=== PATIENT | female | born 1980 | race Caucasian/White ===

== ENCOUNTER 2019-07-13 16:05 | Emergency (ER) | payer MEDICAID ==
[~2019-07-13] VITALS: Ht 151.1 cm; Wt 87.1 kg
[2019-07-13 16:23] VITALS: BP 125/85
--- NOTE | 2019-07-13 18:41 | NUR ---
PAGE, SENT BACK TO LOBBY
--- NOTE | 2019-07-13 20:21 | NUR ---
PT CALLED BACK TO REASSESS PT CONDITION. PT STILL HAS C/O COUGH AND SORE THROAT. PT HYPERTENSIVE, BP 158/84, ASYMPTOMATIC.
--- NOTE | 2019-07-13 20:28 | NUR ---
PT TAKEN TO BED #7
--- NOTE | 2019-07-13 20:28 | NUR ---
PT AMBULATED TO ER BED 07
--- NOTE | 2019-07-13 20:42 | NUR ---
38 Y/O F C/O COUGH X 1 MONTH. PT STATES SHE HAS TAKEN OVER THE COUNTER MEDICAITON FOR THE COUGH, HAS NOT HELPED. PT LUNG SOUNDS COURSE THROUGHOUT, OXYGEN LEVEL 98% ROOM AIR, PT POSITIONED HIGH FOWLERS.PT DENIES N/V/D. PT PUT IN GOWN, BED LOWERED, SIDE RAIL X [address] FAMILY MEMBER AT BEDSIDE. SHRUTHI
--- NOTE | 2019-07-13 21:20 | NUR ---
DR AVELAR AT BEDSIDE EXAMINING PATIENT.
--- NOTE | 2019-07-13 21:32 | NUR ---
REPORT RECIVED FROM MARISSA JACOB.
--- NOTE | 2019-07-13 21:35 | NUR ---
REPORT GIVEN TO CECIL GALARZA FOR CHANGE OF SHIFT.
--- NOTE | 2019-07-13 21:35 | NUR ---
PT RESTING IN BED. FAMILY AT BEDSIDE. RESPIRATIONS ARE EVEN AND UNLABORED. DRY COUGH NOTED. PT SKIN IS EVEN AND UNLABORED. PT REMAINS ON MONTIOR.
[2019-07-13] MEDS ORDERED: ALBUTEROL 0.083% 2.5 MG/3 ML NEBU INH ONE (21:40)
[2019-07-13] MEDS ORDERED: DEXAMETHASONE 4 MG/ML VIAL PO ONE (21:40)
[2019-07-13] MEDS ORDERED: predniSONE 20 MG TAB PO ONE (21:40)
--- NOTE | 2019-07-13 21:48 | NUR ---
PT TO XRAY
--- NOTE | 2019-07-13 22:00 | NUR ---
RT AT BEDSIDE. RECIVEING BREATHING TREATMENT VIA AEROSOL MASK.
[2019-07-13] MEDS ORDERED: AMOXIL/CLAVULANATE 875/125 MG 1 TAB PO ONE (23:00)
[2019-07-13 23:35] VITALS: BP 142/78
--- NOTE | 2019-07-13 23:35 | NUR ---
DCPatient discharged with v/s stable. Written and verbal after care instructions given and explained. Patient alert, oriented and verbalized understanding of instructions. Ambulatory with steady gait. All questions addressed prior to discharge. ID band removed. Patient advised to follow up with PMD. Rx of PREDNISONE, AUGMENTIN, CEPACOL, ALBUTEROL,TESSALON PERLES given. Patient educated on indication of medication including possible reaction and side effects. Opportunity to ask questions provided and answered.
== END 2019-07-13 23:35 | disposition home or self-care (01) ==
LOC: MED 16:05
DX: J18.9 Pneumonia, unspecified organism (principal); J02.9 Acute pharyngitis, unspecified; Z98.890 Other specified postprocedural states
CPT/HCPCS: 71046; 94640; 99284; J1100; J7512; J7613

== ENCOUNTER 2019-10-23 18:48 | Emergency (ER) | payer OTHER, MEDICAID ==
[~2019-10-23] VITALS: Ht 154.9 cm; Wt 90.7 kg
[2019-10-23 18:57] VITALS: BP 168/103
[2019-10-23 19:15] VITALS: BP 168/103
[2019-10-23] MEDS ORDERED: LIDOCAINE MPF 1% 0 ML ONE (19:58)
[2019-10-23] MEDS ORDERED: LIDOCAINE MPF 1% 10 MG/ML VIAL INJ ONE (20:00)
== END 2019-10-23 20:44 | disposition home or self-care (01) ==
LOC: MED 18:48
DX: S03.2XXA Dislocation of tooth, initial encounter (principal); S01.511A Laceration without foreign body of lip, initial encounter; V49.88XA Car occupant (driver) (passenger) injured in other specified transport accidents, initial encounter; Y93.89 Activity, other specified; Y92.89 Other specified places as the place of occurrence of the external cause; Y99.8 Other external cause status
CPT/HCPCS: 99283; J2001

== ENCOUNTER 2020-12-01 12:40 | Emergency (ER) | payer MEDICAID ==
[~2020-12-01] VITALS: Ht 152.4 cm; Wt 91.6 kg
[2020-12-01 12:41] VITALS: BP 140/95
--- NOTE | 2020-12-01 12:57 | NUR ---
Patient ambulated to bed 7. RN evaluating the patient at bedside.
[2020-12-01] MEDS ORDERED: ONDANSETRON 4 MG TAB PO ONE (13:05)
[2020-12-01] MEDS ORDERED: DICYCLOMINE 10 MG CAP PO ONE (13:05)
--- NOTE | 2020-12-01 13:09 | NUR ---
40yo f bib son c/o 10 episodes of vomiting x 2 days. also reports generalized 8/10 cramping abdominal pain and diarrhea x 1 day. denies chest pain. denies fever. denies urinary symptoms. no medications taken. lmp: 12/01/20 pmh: none meds: none nka
[2020-12-01] MEDS ORDERED: ONDA4TAB PO (13:10)
[2020-12-01 13:22] VITALS: BP 140/95
== END 2020-12-01 13:23 | disposition home or self-care (01) ==
LOC: MED 12:40
DX: A09 Infectious gastroenteritis and colitis, unspecified (principal)
CPT/HCPCS: 99283; Q0162

== ENCOUNTER 2021-06-07 03:43 | Inpatient (IN) | payer MEDICAID, SELFPAY ==
[~2021-06-07] VITALS: Ht 154.9 cm; Wt 93.4 kg
[~2021-06-07 03:43] MED LIST: ONDA4TAB PO
[2021-06-07 03:47] VITALS: BP 142/78
--- NOTE | 2021-06-07 03:57 | NUR ---
PT TAKEN TO BED 12
--- NOTE | 2021-06-07 04:01 | NUR ---
patient c/o epigastric pain x2 days that radiates to the back 03/08. +n. took tylenol with no relief. pain on palpation. patient reports eating spicy foods. pmh: love rojas
[2021-06-07] MEDS ORDERED: ONDANSETRON 4 MG/2 ML VIAL IVP ONE (04:05)
[2021-06-07] MEDS ORDERED: NACL 0.9% 1,000 ML IV SCH (04:05)
[2021-06-07] MEDS ORDERED: MORPHINE SULFATE 2 MG/ML SYR IVP ONE ×2 (04:05→05:20)
[2021-06-07] MEDS ORDERED: PANTOPRAZOLE 40 MG INJ VIAL IVP ONE (04:15)
[2021-06-07 04:30] LABS: BASOPHILS % (AUTO) 0.4 % (0.0-2.0); EOSINOPHILS # (AUTO) 0.3 K/uL (0-0.4); EOSINOPHILS % (AUTO) 3.6 % (0.0-4.0); HEMATOCRIT 37.8 % (36-48); HEMOGLOBIN 12.8 g/dL (12.0-16.0); LYMPHOCYTES # (AUTO) 1.8 K/uL (2.5-16.5); LYMPHOCYTES % (AUTO) 22.8 % (20.5-51.1); MEAN CORPUSCULAR HEMOGLOBIN 29 pg (27-31); MEAN CORPUSCULAR HGB CONC 34 g/dL (33-37); MEAN CORPUSCULAR VOLUME 86.2 fL (80-94); MONOCYTES # (AUTO) 0.6 K/uL (0.8-1.0); MONOCYTES % (AUTO) 6.9 % (1.7-9.3); NEUTROPHILS # (AUTO) 5.4 K/uL (1.8-7.7); NEUTROPHILS % (AUTO) 66.3 % (42.2-75.2); PLATELET COUNT (AUTO) 293 K/uL (140-450); RED BLOOD CELL COUNT(AUTO) 4.38 MIL/uL (4.20-5.40); RED CELL DISTRIBUTION WIDTH 13.6 % (11.6-13.7); WHITE BLOOD COUNT (AUTO) 8.1 K/uL (4.8-10.8)
--- NOTE | 2021-06-07 04:31 | NUR ---
PT TAKEN TO CT VIA WHEELCHAIR
--- NOTE | 2021-06-07 04:36 | NUR ---
PT RETURN FROM RAD
[2021-06-07 04:38] LABS: APPEARANCE,URINE HAZY (CLEAR); BILIRUBIN,URINE NEGATIVE (NEGATIVE); BLOOD, URINE NEGATIVE (NEGATIVE); COLOR,URINE YELLOW (YELLOW); LEUKOCYTE ESTERASE ,URINE NEGATIVE (NEGATIVE); NITRITE, URINE NEGATIVE (NEGATIVE); UGLUCOSE NEGATIVE (NEGATIVE)
--- NOTE | 2021-06-07 04:38 | NUR ---
PT RETURNED FROM CT
[2021-06-07 04:53] LABS: ALBUMIN 3.5 g/dL (3.4-5.0); ANION GAP 13.6 (8-16); CARBON DIOXIDE 25.1 mmol/L (21-32); CREATININE 0.6 mg/dL (0.6-1.3); POTASSIUM 3.7 mmol/L (3.5-5.1); TOTAL BILIRUBIN 0.6 mg/dL (0.0-1.0)
[2021-06-07 05:00] LABS: RBC,URINE 0-5 /HPF (0-5); WBC,URINE 0-5 /HPF (0-5)
--- NOTE | 2021-06-07 05:10 | NUR ---
US at bedside.
[2021-06-07] MEDS ORDERED: NACL 0.9% 1,000 ML IV ONE (05:20)
[2021-06-07] MEDS ORDERED: PIPERACILLIN/TAZOBACTAM 3.375 GM in DEXTROSE 5% 50 ML IV ONE (05:20)
[2021-06-07] MEDS ORDERED: PIPERACILLIN/TAZOBACTAM 3.375 GM VIAL IV ONE (05:29)
--- NOTE | 2021-06-07 06:36 | NUR ---
spoke with MD miller and asked for an order of stat HIDA scan.
--- NOTE | 2021-06-07 06:57 | NUR ---
spoke with [facility] and asked about patient last known meal which was 8pm last night and said patient has to be npo 4hrs and any pain medication on hold for 8hrs.
[2021-06-07] MEDS ORDERED: DOCUSATE SODIUM 100 MG GELCAP PO PRN (07:00)
[2021-06-07] MEDS ORDERED: ACETAMINOPHEN 325 MG TAB PO PRN (07:00)
[2021-06-07] MEDS ORDERED: ZOLPIDEM 5 MG TAB PO PRN (07:00)
[2021-06-07] MEDS ORDERED: MORPHINE SULFATE 2 MG/ML SYR IVP PRN (07:00)
[2021-06-07] MEDS ORDERED: POTASSIUM CHLORIDE 10 MEQ TABER PO PRN (07:00)
[2021-06-07] MEDS ORDERED: guaiFENesin DM 200/20 MG-10 ML 10 ML UDC PO PRN (07:00)
[2021-06-07] MEDS ORDERED: HYDROcodone/APAP 7.5/325 MG 1 TAB PO PRN (07:00)
[2021-06-07] MEDS ORDERED: ONDANSETRON 4 MG/2 ML VIAL IM/IVP PRN (07:00)
[2021-06-07] MEDS ORDERED: KETOROLAC 30 MG/ML VIAL IM SCH (07:05)
--- NOTE | 2021-06-07 07:20 | NUR ---
Pt report given to Ernestina JACOB. Transfer of care at this time.
--- NOTE | 2021-06-07 07:21 | NUR ---
REPORT RECEIVED FROM CECIL BELTRAN FOR TRANSFER OF CARE
[2021-06-07] MEDS: DEXT 5% /NACL 0.9% 1,000 ML IV SCH ×2 (08:56→15:12)
[2021-06-07] MEDS ORDERED: PANTOPRAZOLE 40 MG TABEC PO SCH (09:00)
[2021-06-07 09:17] LABS: CHOL/HDL RATIO 3.7 (1-4.5); FREE T4 (FREE THYROXINE) 0.81 ng/dL (0.76-1.46); PHOSPHORUS 3.7 mg/dL (2.5-4.9); THYROID STIMULATING HORMONE 5.44 uIU/mL (0.34-3.74)
[2021-06-07 09:21] LABS: PROTHROMBIN TIME 9.4 secs (10.8-13.4)
--- NOTE | 2021-06-07 10:05 | NUR ---
PER XRAY PATIENT TO BE NPO AFTER 10AM
--- NOTE | 2021-06-07 10:07 | NUR ---
Patient appears to be resting comfortably in bed. Vital Signs within normal limits. Respirations even and unlabored. Addendum: 06/07/21 at 1007 by [email or web address] PT STATING PAIN CURRENTLY 03/08, BUT EXPLAINED UNABLE TO GIVE PAIN MEDICATIONS DUE TO HIDA SCAN ORDERED FOR TODAY
--- NOTE | 2021-06-07 10:57 | NUR ---
PATIENT HAS BEEN SCREENED AND CATEGORIZED MODERATE NUTRITION RISK. PATIENT WILL BE SEEN WITHIN 3-5 DAYS OF ADMISSION. 06/10/21 06/12/[address]
[2021-06-07] MEDS ORDERED: LORazepam 2 MG/ML VIAL IVP STA (11:53)
--- NOTE | 2021-06-07 11:59 | NUR ---
PT AMBULATED TO RESTROOM
--- NOTE | 2021-06-07 12:34 | NUR ---
PT CURRENTLY RESTING AT THIS TIME WITH EYES CLOSED. PT STATED MILD PAIN RELIEF FROM MEDICATIONS GIVEN
--- NOTE | 2021-06-07 12:40 | NUR ---
RADIOLOGIST TECH BEDSIDE PERFORMING HIDA SCAN
--- NOTE | 2021-06-07 15:10 | NUR ---
PT PROVIDED WITH PAIN MEDICATIONS BEDSIDE. PT CURRENTLY RESTING, BUT ANXIOUS IN BED AT THIS TIME
--- NOTE | 2021-06-07 16:56 | NUR ---
PT MOVED FROM BED 12 TO BED 10
--- NOTE | 2021-06-07 18:37 | NUR ---
Patient does not wish to proceed with medical care recommended by DR. TONY. Patient given information related to possible complications, up to and including , which could occur as a result of leaving hospital at this time. Patient verbalizes understanding of risks involved leaving against medical advice. Patient has signed AMA form.
--- NOTE | 2021-06-07 18:37 | NUR ---
PT SIGNED AMA FORM, AWARE.
[2021-06-07 18:50] VITALS: BP 171/92
[2021-06-08 09:07] LABS: T4 (THYROXINE) 7.5 ug/dL (4.5-12.0)
== END 2021-06-07 18:37 | disposition left against medical advice (07) ==
LOC: MED 03:43 → MTU 06:24 → MED 06:24
PROVIDERS: ADMIT Family Medicine; ATTEND Family Medicine
DX: K80.00 Calculus of gallbladder with acute cholecystitis without obstruction (principal); U07.1 COVID-19; K83.8 Other specified diseases of biliary tract; E86.0 Dehydration; R91.8 Other nonspecific abnormal finding of lung field; E66.9 Obesity, unspecified; M06.9 Rheumatoid arthritis, unspecified; Z53.29 Procedure and treatment not carried out because of patient's decision for other reasons; Z68.38 Body mass index [BMI] 38.0-38.9, adult
CPT/HCPCS: 36415; 71045; 76705; 78445; 80053; 81001; 82150; 83036; 83605; 83690; 83735; 83880; 84100; 84436; 84439; 84443; 84479; 84484; 84703; 85025; 85610; 85730; 86886; 86900; 86901; 87040; 93005; 96361; 96365; 96375; 96376; 99285; C9113; J2060; J2270; J2405; J2543; Q0092

== ENCOUNTER 2023-03-11 15:51 | Emergency (ER) | payer MEDICAID ==
[~2023-03-11] VITALS: Ht 152.4 cm; Wt 95.3 kg
[2023-03-11 15:57] VITALS: BP 184/108; PULSE 114; RESP 20; TEMP 97.3; O2SAT 97
[2023-03-11] MEDS ORDERED: ONDANSETRON 4 MG ODT PO ONE (16:35)
[2023-03-11] MEDS ORDERED: ONDA8TAB87 PO (16:55)
[2023-03-11 17:03] VITALS: BP 173/106; PULSE 103; RESP 14; TEMP 97.3; O2SAT 100
== END 2023-03-11 17:03 | disposition home or self-care (01) ==
LOC: MED 15:51
DX: R00.2 Palpitations (principal); R11.0 Nausea; Z79.899 Other long term (current) drug therapy
CPT/HCPCS: 93005; 99283; Q0162

== ENCOUNTER 2023-04-10 02:48 | Emergency (ER) | payer MEDICAID ==
[~2023-04-10] VITALS: Ht 152.4 cm; Wt 91.6 kg
[~2023-04-10 02:48] MED LIST changes: -ONDA4TAB PO; +ONDA8TAB87 PO
[2023-04-10 02:55] VITALS: BP 144/95; PULSE 92; RESP 19; O2SAT 99
[2023-04-10] MEDS ORDERED: diphenhydrAMINE 50 MG/ML VIAL IM ONE (03:35)
[2023-04-10] MEDS ORDERED: predniSONE 20 MG TAB PO ONE (03:35)
[2023-04-10 03:53] VITALS: TEMP 98.3
[2023-04-10] MEDS ORDERED: PRED20TA5 PO (04:10)
[2023-04-10] MEDS ORDERED: DIPH25TA53 PO (04:10)
[2023-04-10 04:21] VITALS: BP 165/85; PULSE 67; RESP 14; O2SAT 100
== END 2023-04-10 04:21 | disposition home or self-care (01) ==
LOC: MED 02:48
DX: L23.9 Allergic contact dermatitis, unspecified cause (principal); Z98.890 Other specified postprocedural states; Z79.899 Other long term (current) drug therapy
CPT/HCPCS: 96372; 99283; J1200; J7512